=== PATIENT | male | born 1990 | race Caucasian/White ===

== ENCOUNTER 2019-08-27 08:15 | Emergency (ER) | payer MEDICAID ==
[~2019-08-27] VITALS: Ht 175.3 cm; Wt 80.0 kg
[2019-08-27 08:47] VITALS: BP 149/76
[2019-08-27] MEDS ORDERED: DEXAMETHASONE 4MG/ML 1ML VIAL IM ONE (10:00)
[2019-08-27] MEDS ORDERED: KETOROLAC 30MG/ML VIAL IM ONE (10:00)
[2019-08-27] MEDS ORDERED: ACETAMINOPHEN 325MG TABLET PO ONE (10:00)
== END 2019-08-27 10:34 | disposition home or self-care (01) ==
LOC: ER 08:15
DX: J02.9 Acute pharyngitis, unspecified (principal); R50.9 Fever, unspecified; M79.18 Myalgia, other site; R11.10 Vomiting, unspecified
CPT/HCPCS: 96372; 99284; J1100; J1885